=== PATIENT | female | born 1965 | race Caucasian/White ===

== ENCOUNTER 2017-12-12 13:06 | Day surgery (SDC) | payer OTHER ==
[2017-12-12] MEDS ORDERED: LR 1,000 ML IV ONE (13:25)
[2017-12-12] MEDS ORDERED: PROPOFOL/EMULSION 500 MG/50 ML BOTTLE IV ONE (15:09)
[2017-12-12] MEDS ORDERED: INDOMETHACIN 50 MG SUPP PR PRN (15:09)
--- NOTE | 2017-12-12 15:09 | PDGENHP ---
History & Physical Chief Complaint: phx polyps History of Present Illness: 52 year old female presents for surveillance of a complex transverse colon polyp Pertinent Past, Social, Family History: SoHx: No cigs . Social alc. PMHx: HTN Relevant Physical Exam: HEENT: anicteric. CV: RRR +s1s2. lungs: CTAB. Abd: soft, nt, +BS Cardiorespiratory Assessment: ASA 2
[2017-12-12] MEDS ORDERED: LIDOCAINE 2% 5 ML SDV ONE (15:12)
[2017-12-12] MEDS ORDERED: NS 500 ML IV SCH (15:15)
--- NOTE | 2017-12-12 15:15 | PDANEPAE ---
ANE Past Medical History - Cardiovascular History Hx Hypertension: No Hx Arrhythmias: No Hx Chest Pain: No Hx Coronary Artery / Peripheral Vascular Disease: No Hx CHF / Valvular Disease: No Hx Palpitations: No - Pulmonary History Hx COPD: No Hx Asthma/Reactive Airway Disease: No Hx Recent Upper Respiratory Infection: No Hx Oxygen in Use at Home: No Hx Sleep Apnea: No Sleep Apnea Screening Result - Last Documented: Negative Pulmonary History Comment: CHILDHOOD PNEUMONIA X3 - Neurologic History Hx Cerebrovascular Accident: No Hx Seizures: No Hx Dementia: No - Endocrine History Hx Diabetes: No Obesity: no - Renal History Hx Renal Disorders: No - Liver History Hx Hepatic Disorders: No - Neurological & Psychiatric Hx Hx Neurological and Psychiatric Disorders: No - Cancer History Hx Cancer: No Cancer History Comment: PRECANCEROUS POLYP REMOVED - Congenital Disorder History Hx Congenital Disorders: No - GI History Hx Gastrointestinal Disorders: No Gastrointestinal History Comment: POLYP REMOVED - Other Health History Other Health History: NEG - Chronic Pain History Chronic Pain: Yes (OCCAS JOINTS) - Surgical History Prior Surgeries: NA WILLIAM SPINE TEEN ANE Review of Systems Review of Systems: - Exercise capacity METS (RN): 4 METS ANE Patient History - Allergies Allergies/Adverse Reactions: Penicillins Allergy (Verified 11/30/17 10:20) CHILDHOOD - UNKNOWN - Home Medications Home medications: home medication list seen and reviewed Home Medications: Adderall 10 MG (*) 11/30/17 [Last Taken 12/11/17] Aspirin 11/30/17 [Last Taken 12/05/17] Herbals/Supplements -Info Only 11/30/17 [Last Taken 12/05/17] - NPO status NPO Since - Liquids (Date): 12/12/17 NPO Since - Liquids (Time): 07:30 NPO Since - Solids (Date): 12/11/17 NPO Since - Solids (Time): 09:00 - Anes Hx Anes Hx: no prior problems - Smoking Hx Smoking Status: Former smoker - Family Anes Hx Family Hx Anesthesia Complications: UNK ANE Labs/Vital Signs - Vital Signs Blood Pressure: 117/77 Heart Rate: 90 Respiratory Rate: 16 O2 Sat (%): 96 Height: 162.56 cm Weight: 55.792 kg ANE Physical Exam - Airway Neck exam: FROM Mallampati Score: Class 1 Mouth exam: normal dental/mouth exam - Pulmonary Pulmonary: no respiratory distress - Cardiovascular Cardiovascular: regular rate and rhythym - ASA Status ASA Status: I ANE Anesthesia Plan Anesthesia Plan: GA with mask
[2017-12-12] MEDS ORDERED: ALBUTEROL 3 ML DEYVIAL IH PRN (15:25)
[2017-12-12] MEDS ORDERED: NALOXONE HCL 0.4 MG/ML INJ IVP PRN (15:25)
[2017-12-12] MEDS ORDERED: fentaNYL 100 MCG/2 ML INJ IVP PRN (15:25)
[2017-12-12] MEDS ORDERED: LR 500 ML IV PRN (15:25)
[2017-12-12] MEDS ORDERED: ONDANSETRON 4 MG/2 ML VIAL IVP PRN (15:25)
[2017-12-12] MEDS ORDERED: ACETAMINOPHEN 500 MG TAB PO PRN (15:25)
--- NOTE | 2017-12-12 15:25 | POSTANESTH ---
Post Anesthetic Evaluation Cardiovascular Status: Normal, Stable Respiratory Status: Normal, Stable Level of Consciousness/Mental Status: Can Participate in Eval Pain Control: Adequate, Prn Tx Ordered Nausea/Vomiting Control: Adequate, Prn Tx Ordered Complications Possibly Related to Anesthesia: None Noted
--- NOTE | 2017-12-12 16:17 | GIREPORT ---
[facility] Surgical Services - Endoscopy Department Patient Name: Karo Pinon Procedure Date: 12/12/2017 3:02 PM Patient Type: Outpatient Attending / ER Physician: Anthony Mauricio MD Procedure: Colonoscopy Indications: High risk colon cancer surveillance: Personal history of colonic polyps Patient Profile: 52 year old female personal history of polyps presents for surveillance of complex polyps. Providers: Anthony Mauricio MD Medicines: Monitored Anesthesia Care Complications: No immediate complications. Estimated blood loss: Minimal. Description of Procedure: After obtaining informed consent, the scope was passed under direct vis ion. Throughout the procedure, the patient's blood pressure, pulse, and oxyg en saturations were monitored continuously. The Colonoscope with irrigatio n channel was introduced through the anus and advanced to the cecum, identified by appendiceal orifice and ileocecal valve. The colonoscopy was performed without difficulty. The patient tolerated the procedure well. The quality of the bowel preparation was good. The ileocecal valve, appendi ceal orifice, and rectum were photographed. Findings: The perianal and digital rectal examinations were normal. Pertinent negatives include no palpable rectal lesions. A 2 mm polyp was found in the ascending colon. The polyp was sessile. T he polyp was removed with a cold biopsy forceps. Resection and retrieval w ere complete. Two sessile polyps were found in the hepatic flexure. The polyps were 3 to 6 mm in size. These polyps were removed with a cold snare. Resection and retrieval were complete. Two sessile polyps were found in the sigmoid colon and descending colon . The polyps were 2 to 3 mm in size. These polyps were removed with a cold bi opsy forceps. Resection and retrieval were complete. Diverticula were found in the sigmoid colon. Estimated Blood Loss: Estimated blood loss was minimal. Post Op Diagnosis: - One 2 mm polyp in the ascending colon, removed with a cold biopsy for ceps. Resected and retrieved. - Six 3 to 6 mm polyps at the hepatic flexure, removed with a cold snar e. Resected and retrieved. - Two 2 to 3 mm polyps in the sigmoid colon and in the descending colon , removed with a cold biopsy forceps. Resected and retrieved. Recommendation: - Discharge patient to home (with escort). - Resume previous diet. - Continue present medications. - Repeat colonoscopy for surveillance based on pathology results. - Await pathology results. - Thank you for allowing me to participate in the care of your patient. Attending Participation: I personally performed the entire procedure. Anthony Mauricio MD Anthony Mauricio MD 12/12/2017 4:16:44 PM This report has been signed electronicallyAnthony Mauricio MD Number of Addenda: 0 Note Initiated On: 12/12/2017 3:02 PM Total Procedure Duration Time 0 hours 29 minutes 45 seconds [email or web address]
[2017-12-12 18:09] VITALS: BP 118/85
== END 2017-12-12 17:30 | disposition home or self-care (01) ==
LOC: FSGY 13:06
PROVIDERS: ATTEND Internal Medicine Gastroenterology
PROC: 0DBN8ZX Excision of Sigmoid Colon, Via Natural or Artificial Opening Endoscopic, Diagnostic (ICD-10-PCS; principal; 2017-12-12 14:30)
PROC: 0DBK8ZX Excision of Ascending Colon, Via Natural or Artificial Opening Endoscopic, Diagnostic (ICD-10-PCS; principal; 2017-12-12 14:30)
PROC: 0DBM8ZX Excision of Descending Colon, Via Natural or Artificial Opening Endoscopic, Diagnostic (ICD-10-PCS; principal; 2017-12-12 14:30)
PROC: 0DBL8ZX Excision of Transverse Colon, Via Natural or Artificial Opening Endoscopic, Diagnostic (ICD-10-PCS; principal; 2017-12-12 14:30)
DX: Z12.11 Encounter for screening for malignant neoplasm of colon (principal); D12.6 Benign neoplasm of colon, unspecified; K57.30 Diverticulosis of large intestine without perforation or abscess without bleeding; Z87.19 Personal history of other diseases of the digestive system
CPT/HCPCS: J2704